=== PATIENT | female | born 1995 | race Caucasian/White ===

== ENCOUNTER 2019-10-25 08:41 | Emergency (ER) | payer MEDICAID, OTHER ==
[~2019-10-25] VITALS: Ht 167.6 cm; Wt 127.0 kg
[2019-10-25 10:15] LABS: Urine Bacteria FEW /hpf (None Seen); Urine Blood Negative /uL (Negative); Urine Mucus FEW (None Seen); Urine Specific Gravity 1.023 (1.001-1.035); Urine WBC 110 /hpf (0 - 5)
[2019-10-25] MEDS ORDERED: ONDANSETRON ODT 4 MG TAB PO ONE (10:45)
[2019-10-25 11:20] VITALS: BP 151/95
[2019-10-25] MEDS ORDERED: DOXYCYCLINE 100 MG TAB/CAP PO ONE (12:00)
== END 2019-10-25 13:35 | disposition home or self-care (01) ==
LOC: ER 08:41
DX: N39.0 Urinary tract infection, site not specified (principal); R06.02 Shortness of breath; Z20.828 Contact with and (suspected) exposure to other viral communicable diseases
CPT/HCPCS: 71045; 81001; 99284; Q0162

== ENCOUNTER 2024-02-21 17:12 | Emergency (ER) | payer MEDICAID, OTHER ==
[~2024-02-21] VITALS: Ht 167.6 cm; Wt 102.9 kg
--- NOTE | 2024-02-21 18:21 | ED.PDOC ---
Psychiatric HPI Comments 28y F who presents to the ED for chief complaint of detox clearance. Pt states she needs a detox form signed by medical provider clearing her so she can enter detox facility for her drug use. Pt states she takes risperidone and states she needs a signed form that she does not need a new prescription and she is stable enough without a prescription to enter facility. Pt states she is homeless for the past 6 months and wants to stop abusing drugs. Pt otherwise admits to using drug this past Sunday. Pt in the ED, denies suicidal or homicidal ideations. Pt denies auditory or visual hallucinations. Pt has noted history of schizophrenia and states she has been off medications for the past 1 year. Pt denies any other symptoms at this time. Chief Complaint: Detox Clearance Time Seen by MD: 18:19 Primary Care Provider: DR HERNANDEZ Reviewed Notes: Medications Information Source: Patient Mode of Arrival: Ambulatory Past Medical History PAST MEDICAL HISTORY: Schizophrenia Surgical History: , Tonsillectomy PRODUCT TESTER FIBERGLASS History: No Pertinent PRODUCT TESTER FIBERGLASS History Family History Family History: Reviewed,noncontributory to illness, No family hx of Cancer, No family hx of DM, No family hx of Heart alonso, No family hx of HTN, No family hx ofKidney alonso, No family hx of Liver alonso, No family hx of Lung alonso, No family hx of Stroke Social History Smoker: Non-Smoker Alcohol: Denies ETOH Use Drugs: Methamphetamine Lives In: Home Constitutional: denies: chills, diaphoresis, fatigue, fever, malaise, sweats, weakness, others EENTM: denies: blurred vision, double vision, ear bleeding, ear discharge, ear drainage, ear pain, ear ringing, eye pain, eye redness, hearing loss, mouth pain, mouth swelling, nasal discharge, nose bleeding, nose congestion, nose pain, photophobia, tearing, throat pain, throat swelling, voice changes, others Respiratory: denies: cough, hemoptysis, orthopnea, SOB at rest, shortness of breath, SOB with excertion, stridor, wheezing, others Cardiovascular: denies: chest pain, dizzy spells, diaphoresis, Dyspnea on exertion, edema, irregular heart beat, left arm pain, lightheadedness, palpitations, PND, syncope, others Gastrointestinal: denies: abdomen distended, abdominal pain, blood streaked bowels, constipated, diarrhea, dysphagia, difficulty swallowing, hematemesis, melena, nausea, poor appetite, poor fluid intake, rectal bleeding, rectal pain, vomiting, others Genitourinary: denies: abnormal vagina bleeding, burning, dyspareunia, dysuria, flank pain, frequency, hematuria, incontinence, pain, , vagina discha rge, urgency, others Neurological: denies: dizziness, fainting, headache, left sided numbness, left sided weakness, numbness, paresthesia, pre-existing deficit, right sided numbness, right sided weakness, seizure, speech problems, tingling, tremors, weakness, others Musculoskeletal: denies: back pain, gout, joint pain, joint swelling, muscle pain, muscle stiffness, neck pain, others Integumetry: denies: bruises, change in color, change in hair/nails, dryness, laceration, lesions, lumps, rash, wounds, others Allergic/Immunocompromised: denies: Difficulty Healing, Frequent Infections, Hives, Itching, others Hematologic/Lymphatic: denies: anemia, blood clots, easy bleeding, easy bruising, swollen glands, others Endocrine: denies: excessive hunger, excessive sweating, excessive thirst, excessive urination, flushing, intolerance to cold, intolerance to heat, unexplained weight gain, unexplained weight loss, others Psychiatric: denies: anxiety, bipolar disorder, depression, hopeless, panic disorder, schizophrenia, sleepless, suicidal, others All Other Systems: Reviewed and Negative Was a procedure done? Was a procedure done?: No Psych Differential Dx Psych. Differential Dx: Schizoprenia, Suicidal OD Differential Dx: Intentional Other Differentail Dx drug use X-Ray, Labs, Meds, VS Vital Signs Date Time Temp Pulse Resp B/P (MAP) Pulse Ox O2 Delivery O2 Flow Rate FiO2 02/21/24 17:20 97.8 97 16 154/98 (116) 99 Lab Test 02/21/24 18:08 Range/Units Plasma/Serum Blood Alcohol Pending Time of 1ST Reevaluation: 18:50 Reevaluation 1ST: Unchanged Patient Education/Counseling: Diagnosis, Treatment Family Education/Counseling: No Family Present Critical Care Note Critical Care Time?: No Stability Stability form required: No Heart Score Heart Score: Heart Score Response (Comments) Value History N/A 0 EKG N/A 0 Age N/A 0 Risk Factors N/A 0 Troponin N/A 0 Total 0 I personally scribed for ANDRE XIONG MD ([email or web address]) on 02/21/24 at 18:21. Electronically submitted by Ralph Sorensen ([facility] I personally scribed for ANDRE XIONG MD ([email or web address]) on 02/21/24 at 18:21. Electron[facility] ANDRE XIONG MD Feb 21, 2024 18:21
--- NOTE | 2024-02-21 18:23 | ED.PDOC ---
Psychiatric HPI Comments 28y F who presents to the ED for chief complaint of detox clearance. Pt states she needs a detox form signed by medical provider clearing her so she can enter detox facility for her drug use. Pt states she takes risperidone and states she needs a signed form that she does not need a new prescription and she is stable enough without a prescription to enter facility. Pt states she is homeless for the past 6 months and wants to stop abusing drugs. Pt otherwise admits to using drug this past Sunday. Pt in the ED, denies suicidal or homicidal ideations. Pt denies auditory or visual hallucinations. Pt has noted history of schizophrenia and states she has been off medications for the past 1 year. Pt denies any other symptoms at this time. Vital signs were stable on arrival. Chief Complaint: Detox Clearance Time Seen by MD: 18:22 Primary Care Provider: DR HERNANDEZ Reviewed Notes: Nurses Notes, Medications Information Source: Patient Mode of Arrival: Ambulatory Severity: Able to Care for Self Severity of Pain: None Severity of Mental Status: Moderate Severity of Symptoms: Moderate Timing: Months Duration: Since onset Presents with: Depression History of: Substance Abuse Past Medical History PAST MEDICAL HISTORY: Schizophrenia Surgical History: , Tonsillectomy EXTRACTOR LOADER AND UNLOADER History: No Pertinent EXTRACTOR LOADER AND UNLOADER History Family History Family History: Reviewed,noncontributory to illness, No family hx of Cancer, No family hx of DM, No family hx of Heart alonso, No family hx of HTN, No family hx ofKidney alonso, No family hx of Liver alonso, No family hx of Lung alonso, No family hx of Stroke Social History Smoker: Non-Smoker Alcohol: Denies ETOH Use Drugs: Methamphetamine Lives In: Home Constitutional: denies: chills, diaphoresis, fatigue, fever, malaise, sweats, weakness, others EENTM: denies: blurred vision, double vision, ear bleeding, ear discharge, ear drainage, ear pain, ear ringing, eye pain, eye redness, hearing loss, mouth pain, mouth swelling, nasal discharge, nose bleeding, nose congestion, nose pain, photophobia, tearing, throat pain, throat swelling, voice changes, others Respiratory: denies: cough, hemoptysis, orthopnea, SOB at rest, shortness of breath, SOB with excertion, stridor, wheezing, others Cardiovascular: denies: chest pain, dizzy spells, diaphoresis, Dyspnea on exertion, edema, irregular heart beat, left arm pain, lightheadedness, palpitations, PND, syncope, others Gastrointestinal: denies: abdomen distended, abdominal pain, blood streaked bowels, constipated, diarrhea, dysphagia, difficulty swallowing, hematemesis, melena, nausea, poor appetite, poor fluid intake, rectal bleeding, rectal pain, vomiting, others Genitourinary: denies: abnormal vagina bleeding, burning, dyspareunia, dysuria, flank pain, frequency, hematuria, incontinence, pain, , vagina discharge, urgency, others Neurological: denies: dizziness, fainting, headache, left sided numbness, left sided weakness, numbness, paresthesia, pre-existing deficit, right sided numbn ess, right sided weakness, seizure, speech problems, tingling, tremors, weakness, others Musculoskeletal: denies: back pain, gout, joint pain, joint swelling, muscle pain, muscle stiffness, neck pain, others Integumetry: denies: bruises, change in color, change in hair/nails, dryness, laceration, lesions, lumps, rash, wounds, others Allergic/Immunocompromised: denies: Difficulty Healing, Frequent Infections, Hives, Itching, others Hematologic/Lymphatic: denies: anemia, blood clots, easy bleeding, easy bruising, swollen glands, others Endocrine: denies: excessive hunger, excessive sweating, excessive thirst, excessive urination, flushing, intolerance to cold, intolerance to heat, unexplained weight gain, unexplained weight loss, others Psychiatric: denies: anxiety, bipolar disorder, depression, hopeless, panic disorder, schizophrenia, sleepless, suicidal, others All Other Systems: Reviewed and Negative Physical Exam General Appearance: No Apparent Distress (Patient was not in distress at time of evaluation.), Normal HEENT: Normal ENT Inspection, Pharynx Normal, TMs Normal Neck: Full Range of Motion, Non-Tender, Normal, Normal Inspection Respiratory: Chest Non-Tender, Lungs Clear, No Accessory Muscle Use, No Respiratory Distress, Normal Breath Sounds Cardiovascular: No Edema, No JVD, No Murmur, No Gallop, Normal Peripheral Pulses, Regular Rate/Rhythm Breast Exam: Deferred Gastrointestinal: No Organomegaly, Non Tender, No Pulsatile Mass, Normal Bowel Sounds, Soft Genitalia: Deferred Pelvic: Deferred Rectal: Deferred Extremities: No calf tenderness, Normal capillary refill, Normal inspection, Normal range of motion, Non-tender, No pedal edema Neurologic: Alert, floor finisher helper II-XII nml as Tested, No Motor Deficits, Normal Affect, Normal Mood, No Sensory Deficits Cerebellar Function: Normal Reflexes: Normal Skin: Dry, Normal Color, Warm Lymphatic: No Adenopathy Was a procedure done? Was a procedure done?: No Psych Differential Dx Psych. Differential Dx: Schizoprenia, Suicidal OD Differential Dx: Delirium, Depression, Intentional Other Differentail Dx drug use, X-Ray, Labs, Meds, VS Vital Signs Date Time Temp Pulse Resp B/P (MAP) Pulse Ox O2 Delivery O2 Flow Rate FiO2 02/21/24 21:10 18 98 Room Air* 0 21 02/21/24 21:08 98.0 105 18 143/98 (113) 98 98.0 02/21/24 17:20 97.8 97 16 154/98 (116) 99 Lab Test 02/21/24 19:19 02/21/24 18:08 Range/Units Urine Color Light-yellow Yellow Urine Clarity Turbid H Clear Urine pH 6.0 5.0-9.0 Urine Specific [place] 1.027 1.001-1.035 Urine Protein Trace H Negative Urine Ketones Trace Negative Urine Blood 1+ H Negative /uL Urine Nitrite Negative Negative Urine Bilirubin Negative Negative Urine Urobilinogen Normal Negative mg/dL Urine Leukocyte Esterase 3+ Negative /uL Urine RBC 31 0 - 4 /hpf Urine WBC 131 0 - 5 /hpf Urine Squamous Epithelial Cells Mod <5 /hpf Urine Bacteria Few H None Seen /hpf Urine Mucus Few None Seen Urine Glucose Normal Normal mg/dL Urine Opiates Screen Neg NEGATIVE Urine Fentanyl Screen Neg NEGATIVE Urine Barbiturates Screen Neg NEGATIVE Urine Phencyclidine Screen Neg NEGATIVE Urine Amphetamines Screen Pos NEGATIVE Urine Benzodiazepines Screen Neg NEGATIVE Urine Cocaine Screen Neg NEGATIVE Urine Cannabinoids Screen Pos NEGATIVE Plasma/Serum Blood Alcohol 4.2 <10 mg/dL Current Medications Medications (Trade) Dose Ordered Sig/Mesha Route Start Time Stop Time Status Last Admin Nitrofurantoin Macrocrystals (Macrobid) 100 mg ONCE ONCE PO 02/21/24 20:30 02/21/24 20:31 DC 02/21/24 21:06 X-Ray, Labs, Meds, VS Comment All studies performed the ED today were evaluated by me personally. Laboratories confirmed methamphetamine use as well as cannabis use. Urine confirmed small urinary tract infection. Patient be provided with a antibiotics at discharge. Patient has been medically cleared for psych evaluation. While waiting on psych evaluation, patient appears to eloped from the facility. Time of 1ST Reevaluation: 00:27 Reevaluation 1ST: Improved Consultation: PCP, Psychiatry, Other (Illicit drug rehab) Patient Education/Counseling: Diagnosis, Treatment Family Education/Counseling: Diagnosis, Treatment, No Family Present Departure 1 Departure Time of Disposition: 00:28 Impression: Primary Impression: Methamphetamine abuse Additional Impression: UTI (urinary tract infection) Disposition: 07 LEFT AWOL/ELOPED Condition: Fair Additional Instructions: Advised patient utilize antibiotics as directed and to completion. Waiting on tele psych consult at time of this note. e-Prescriptions Nitrofurantoin Monohydrate Mac (Macrobid) 100 Mg Cap 100 MG PO BID for 7 Days, #14 CAP Prov: SRINATH CARVAJAL PAC 02/22/24 Discharged With: Self, Friend Critical Care Note Critical Care Time?: No Stability Stability form required: No Heart Score Heart Score: Heart Score Response (Comments) Value History N/A 0 EKG N/A 0 Age N/A 0 Risk Factors N/A 0 Troponin N/A 0 Total 0 I personally scribed for SRINATH CARVAJAL PAC ([email or web address]) on 02/21/24 at 18:23. Electronically submitted by Ralph Sorensen ([email or web address]). SRINATH CARVAJAL PAC Feb 21, 2024 18:23
[2024-02-21 19:34] LABS: Urine Bacteria FEW /hpf (None Seen); Urine Blood 1+ /uL (Negative); Urine Clarity Turbid (Clear); Urine Color Light-Yellow (Yellow); Urine Mucus FEW (None Seen); Urine Protein, UAD TRACE (Negative); Urine Specific Gravity 1.027 (1.001-1.035); Urine Urobilinogen Normal (Negative); Urine WBC 131 /hpf (0 - 5)
[2024-02-21 19:46] LABS: Amphetamine Screen, Urine Pos (NEGATIVE); Barbiturate Scree,Urine Neg (NEGATIVE); Benzodiazephine Screen, Urine Neg (NEGATIVE); Cannabinoid Screen, Urine Pos (NEGATIVE); Cocaine Screen, Urine Neg (NEGATIVE); Opiate Scree,Urine Neg (NEGATIVE); Phencyclidine Screen, Urine Neg (NEGATIVE)
[2024-02-21] MEDS: NITROFURANTOIN 100 mg CAP PO ONE (21:06)
[2024-02-21 21:08] VITALS: BP 143/98; PULSE 105; TEMP 98
[2024-02-21 21:10] VITALS: RESP 18; O2SAT 98
[2024-02-22] MEDS ORDERED: NITR-87 PO (00:29)
--- NOTE | 2024-02-22 01:22 | DVHINCON2 ---
Date of Service if different f: Feb 22, 2024 Time of Service: 01:22 Consult Consult Note It appears pt may have eloped prior to psych evaluation Please call back if pt returns to ED Wyatt Bañuelos MD Plan discussed with: Other WYATT BAÑUELOS MD Feb 22, 2024 01:22
== END 2024-02-22 02:10 | disposition left against medical advice (07) ==
LOC: ER 17:15
DX: N39.0 Urinary tract infection, site not specified (principal); F15.10 Other stimulant abuse, uncomplicated; F20.9 Schizophrenia, unspecified; Z90.89 Acquired absence of other organs; Z98.890 Other specified postprocedural states; Z79.899 Other long term (current) drug therapy
CPT/HCPCS: 36415; 80307; 80320; 81001; 99283; J7030